=== PATIENT | female | born 1980 | race Caucasian/White ===

== ENCOUNTER 2017-06-19 13:29 | Emergency (ER) | payer OTHER ==
[2017-06-19] MEDS ORDERED: HYDROcodone/ACETAMIN 5-325 MG* 1 TAB PO ONE (14:07)
--- NOTE | 2017-06-19 14:09 | RAD ---
INDICATION: Right wrist injury. TECHNIQUE: 3 views of the right wrist were obtained. FINDINGS: There is diffuse soft tissue swelling present. There is a comminuted oblique fracture of the distal radius extending from the junction of the metaphysis and diaphysis to the distal articular surface. The major distal fragment is displaced slightly posterior and lateral approximately 1 cortical diameter. No other fractures are seen. IMPRESSION: OBLIQUE, COMMINUTED, INTRA-ARTICULAR, SLIGHTLY DISPLACED FRACTURE OF THE DISTAL RADIUS.
--- NOTE | 2017-06-19 14:11 | RAD ---
INDICATION: Right forearm injury. TECHNIQUE: 2 views of the right forearm were obtained. FINDINGS: Again note is made of a comminuted intra-articular slightly displaced fracture of the distal radius. No additional fracture is seen. IMPRESSION: COMMINUTED INTRA-ARTICULAR SLIGHTLY DISPLACED FRACTURE OF THE DISTAL RADIUS, NO ADDITIONAL FRACTURE IS SEEN.
--- NOTE | 2017-06-19 14:43 | UC ---
Minor Trauma HPI - HPI Summary HPI Summary: Patient presents with an unremarkable past medical history. She presents s/p fall on the ice in which she fell backward,s and put her hands behind her to catch herself. She felt immediate pain in the right wrist that radiates up the forearm to the elbow, which lasted several minutes. Then the pain localized to the right wrist. She also notes soft tissue swelling, and cannot move the wrist. She does report full sensation of the finger tips. She denies any other concerns at this visit. - History of Current Complaint Chief Complaint: UCUpperExtremity Stated Complaint: WRIST INJURY Time Seen by Provider: 06/19/17 13:57 Hx Obtained From: Patient Hx Last Menstrual Period: now Onset/Duration: Sudden Onset, Lasting Hours Onset Of Pain: Immediate Severity Initially: Severe Severity Currently: Severe Pain Intensity: 7 Mechanism Of Injury: Blunt Trauma Aggravating Factor(s): Movement Alleviating Factor(s): Elevation Associated Signs And Symptoms: Positive: Swelling - Risk Factors Penetrating Injury Risk Factors: Negative - Allergies/Home Medications Allergies/Adverse Reactions: Allergies Allergy/AdvReac Type Severity Reaction Status Date / Time No Known Allergies Allergy Verified 06/19/17 13:55 PMH/Surg Hx/FS Hx/Imm Hx Previously Healthy: Yes - Surgical History Surgical History: None - Family History Known Family History: Positive: None - Social History Occupation: Employed Full-time Lives: Alone Alcohol Use: Occasionally Substance Use Type: None Smoking Status (MU): Former Smoker Review of Systems Constitutional: Negative Skin: Negative Eyes: Negative ENT: Negative Respiratory: Negative Cardiovascular: Negative Gastrointestinal: Negative Genitourinary: Negative Motor: Negative Neurovascular: Negative Musculoskeletal: Decreased ROM, Myalgia, Other: - r Neurological: Negative Psychological: Negative Is Patient Immunocompromised?: No All Other Systems Reviewed And Are Negative: Yes Physical Exam Triage Information Reviewed: Yes Appearance: Pain Distress Vital Signs: Initial Vital Signs Temp 97.8 F 06/19/17 13:53 Pulse 73 06/19/17 13:53 Resp 12 06/19/17 13:53 BP 131/77 06/19/17 13:53 Pulse Ox 100 06/19/17 13:53 Vital Signs Reviewed: Yes Eye Exam: Normal ENT Exam: Normal Neck exam: Normal Neck: Positive: 1 Respiratory Exam: Normal Cardiovascular Exam: Normal Abdominal Exam: Normal Musculoskeletal Exam: Normal Musculoskeletal: Positive: Strength Limited @, ROM Limited @, Edema @ - ight wrist, inspection soft tissue swelling and deformity noted distal radius. Palpation, tendernss to light palp of distal radius. rom; limited cannot move wrist. neuro-vasc intact with radial pulses 2+ fingers pink and warm, cap refill less that 3 sec. Neurological Exam: Normal Skin Exam: Normal Minor Trauma Course/Dx - Course Course Of Treatment: Patient presents s/p fall with right wrist pain, and deformity with soft tissue swelling noted,she was neruo-vasc intact. xrays of the right wirst and forearm were obtained and revelaed a communited mildly displaced distal radius. Pain addressed, and placed in a sugar-yuriy splint. Patient was given copies of the disc and Dr. Chao was contacted and he can see the patient in the office tomorrow prior to her going back home in [facility]. I told her no lifting or use of the right wrist. She verbalized understading of and in agreement with the discharge plan. - Differential Dx/Diagnosis Differential Diagnosis/HQI/PQRI: Fracture, Other - right distal radial fracture Provider Diagnoses: right distal radial fracture. Discharge - Discharge Plan Condition: Stable Disposition: HOME Prescriptions: HYDROcodone/ACETAMIN 5-325 MG* [Belle 5-325 TAB*] 1 tab PO Q4H PRN #14 tab MDD 6 PRN Reason: fractured wrist Patient Education Materials: Wrist Fracture in Adults (ED) Referrals: Jorge Chao MD [Medical Doctor] - No Primary Care Phys,NOPCP [Primary Care Provider] -
== END 2017-06-19 14:44 | disposition home or self-care (01) ==
LOC: UCEAST 13:29
DX: S52.501A Unspecified fracture of the lower end of right radius, initial encounter for closed fracture (principal); W00.0XXA Fall on same level due to ice and snow, initial encounter; Y92.9 Unspecified place or not applicable; Z87.891 Personal history of nicotine dependence
CPT/HCPCS: 99202; G0463

== ENCOUNTER 2017-10-28 13:20 | Emergency (ER) | payer OTHER ==
--- NOTE | 2017-10-28 13:32 | UC ---
Respiratory Complaint HPI - HPI Summary HPI Summary: 37 yo female presents with 5 days of dry cough, sinus pain/pressure/congestion, and post nasal drip. She has not been taking anything OTC. Denies fever, chills , sore throat, SOB, chest pain. - History of Current Complaint Chief Complaint: UCRespiratory Stated Complaint: RESP ISSUE COUGH Hx Obtained From: Patient Hx Last Menstrual Period: 10/28/17 Onset/Duration: Gradual Onset Timing: Constant Severity Initially: Mild Severity Currently: Moderate Pain Intensity: 4 Pain Scale Used: 0-10 Numeric Character: Cough: Nonproductive - Allergies/Home Medications Allergies/Adverse Reactions: Allergies Allergy/AdvReac Type Severity Reaction Status Date / Time No Known Allergies Allergy Verified 10/28/17 13:29 PMH/Surg Hx/FS Hx/Imm Hx - Additional Past Medical History Additional PMH: None Previously Healthy: Yes - Surgical History Surgical History: None - Family History Known Family History: Positive: None - Social History Occupation: Employed Full-time Lives: With Family Alcohol Use: Occasionally Substance Use Type: None Smoking Status (MU): Former Smoker Review of Systems Constitutional: Negative Skin: Negative Eyes: Negative ENT: Nasal Discharge, Sinus Congestion, Sinus Pain/Tenderness Respiratory: Cough Cardiovascular: Negative Gastrointestinal: Negative Neurovascular: Negative Neurological: Negative Psychological: Negative All Other Systems Reviewed And Are Negative: Yes Physical Exam - Summary Physical Exam Summary: GENERAL: NAD. WDWN. No pain distress. SKIN: No rashes, sores, lesions, or open wounds. HEENT: Head: AT/NC Eyes: EOM intact. Conjunctiva clear without inflammation or discharge. Ears: Hearing grossly normal. TMs intact, no bulging, erythema, or edema. Nose: Nasal mucosa mildly swollen and erythematous with clear discharge. TTP maxillary sinus. NTTP frontal sinus. Throat: Posterior oropharynx without exudates, erythema, or tonsillar enlargement. Uvula midline. NECK: Supple. Nontender. No lymphadenopathy. CHEST: CTAB. No r/r/w. No accessory muscle use. Breathing comfortably and in no distress. CV: RRR. Without m/r/g. Pulses intact. Brisk cap refill. NEURO: Alert. CN II-XII grossly intact. PSYCH: Age appropriate behavior. Triage Information Reviewed: Yes Vital Signs: Initial Vital Signs Temp 98 F 10/28/17 13:25 Pulse 97 10/28/17 13:25 Resp 21 10/28/17 13:25 BP 112/74 10/28/17 13:25 Pulse Ox 100 10/28/17 13:25 UC Diagnostic Evaluation - Laboratory O2 Sat by Pulse Oximetry: 100 Respiratory Course/Dx - Course Course Of Treatment: Sinusitis and cough. i STOP Reference #: [id number] and ok. Advised to try OTC mucinex in addition to rx's today. - Differential Dx/Diagnosis Provider Diagnoses: Sinusitis. Cough Discharge - Sign-Out/Discharge Documenting (check all that apply): Discharge/Admit/Transfer - Discharge Plan Condition: Stable Disposition: HOME Prescriptions: Amoxicillin PO (*) [Amoxicillin 500 MG CAP*] 500 mg PO Q12H #14 cap Benzonatate CAP* [Tessalon 100 MG CAP*] 100 mg PO TID PRN #21 cap PRN Reason: Cough Codeine Phosphate/Guaifenesin [Guaifen-Codeine 100-10 mg/5 ml] 5 ml PO BEDTIME PRN #35 ml MDD 5mL PRN Reason: Cough Patient Education Materials: Sinusitis (ED) Referrals: No Primary Care Phys,NOPCP [Primary Care Provider] - Additional Instructions: If you develop a fever, shortness of breath, chest pain, new or worsening symptoms - please call your PCP or go to the ED. - Billing Disposition and Condition Condition: STABLE Disposition: Home
== END 2017-10-28 13:50 | disposition home or self-care (01) ==
LOC: UCEAST 13:20
DX: J32.9 Chronic sinusitis, unspecified (principal); R05 Cough; Z87.891 Personal history of nicotine dependence
CPT/HCPCS: 99212; G0463